=== PATIENT | male | born 1980 | race Caucasian/White ===

== ENCOUNTER 2020-04-18 19:24 | Observation (INO) ==
[2020-04-18] MEDS ORDERED: ONDANSETRON 4 MG/2 ML VIAL IV STA (19:50)
[2020-04-18] MEDS ORDERED: MORPHINE 4 MG/1 ML VIAL IV STA (19:50)
[2020-04-18 20:17] LABS: Basophils # 0.1 10*3/uL (0.0-0.2); Basophils % 0.5 % (0.0-0.8); Eosinophils # 0.1 10*3/uL (0.0-0.87); Eosinophils % 0.9 % (0.00-10.9); Hematocrit 45.2 VOL% (42.0-52.0); Hemoglobin 15.7 GM/DL (14.0-18.0); Immature Granulocytes % 0.3 %; Immature Granulocytes Absolute 0.05 #; Lymphocytes # 5.3 10*3/uL (1.4-4.0); Lymphocytes % 36.2 % (21.2-54.2); Mean Corpuscular HGB Conc 34.7 GM/DL (32-36); Mean Corpuscular Volume 83.4 FL (87-102); Mean Platelet Volume 8.8 FL (9.6-12.0); Monocytes % 6.4 % (1.7-12.7); Neutrophils % 55.7 % (38.7-73.9); Platelet Count 395 T/CUMM (130-400); Red Blood Count 5.42 MC/CUMM (3.8-5.5); Red Cell Distribution Width 12.1 % (9.3-17.3); White Blood Count 14.7 T/CUMM (4-12)
[2020-04-18 20:33] LABS: PT Patient Result 10.9 SECS (9.8-11.9)
[2020-04-18 20:57] LABS: Albumin 4.2 G/DL (3.4-5.0); Bilirubin,Total 0.6 MG/DL (0.2-1.0); Calcium 9.3 MG/DL (8.5-10.1); Osmolality,Calculated 272.8 MOS/KG (273-304); Total Protein 7.9 G/DL (6.4-8.3)
[2020-04-18] MEDS ORDERED: MORPHINE 4 MG/1 ML VIAL IV PRN (23:25)
[2020-04-18] MEDS ORDERED: ACETAMINOPHEN 325 MG TABLET PO PRN (23:25)
[2020-04-18] MEDS ORDERED: ONDANSETRON 4 MG/2 ML VIAL IV PRN (23:25)
[2020-04-18] MEDS ORDERED: DEXTROSE 50% 25 GM/50 ML VIAL IV PRN (23:25)
[2020-04-18] MEDS ORDERED: GLUCAGON 1 MG VIAL IM PRN (23:25)
[2020-04-18] MEDS ORDERED: ENOXAPARIN 40 MG/0.4 ML SYRINGE SUBCUT SCH (23:30)
[2020-04-18] MEDS ORDERED: KETOROLAC 30 MG/1 ML VIAL IV PRN (23:39)
[2020-04-19] MEDS ORDERED: NITROGLYCERIN 2% OINT 1 INCH/GM PACK TOP SCH
[2020-04-19 02:18] VITALS: BP 152/92
[2020-04-19] MEDS ORDERED: ASPIRIN EC 81 MG TABLET PO SCH (09:00)
[2020-04-19] MEDS ORDERED: ENALAPRIL 20 MG TABLET PO SCH (09:00)
[2020-04-19] MEDS ORDERED: PANTOPRAZOLE 40 MG TABLET PO SCH (09:00)
[2020-04-19] MEDS ORDERED: FLUoxetine 20 MG CAPSULE PO SCH (09:00)
[2020-04-19] MEDS ORDERED: ATORVASTATIN 40 MG TABLET PO SCH (09:00)
[2020-04-19] MEDS ORDERED: METOPROLOL SUCCINATE XL 25 MG TABLET PO SCH (09:00)
[2020-04-19] MEDS ORDERED: CLOPIDOGREL 75 MG TABLET PO SCH (09:00)
== END 2020-04-19 00:30 | disposition left against medical advice (07) ==
LOC: N.EDINP 19:24 → N.ED 19:24 → N.TELES 23:57
PROVIDERS: ADMIT Family Medicine; ATTEND Family Medicine

== ENCOUNTER 2020-08-15 06:50 | Observation (INO) ==
[2020-08-15] MEDS ORDERED: NITROGLYCERIN SL 0.4 MG TABLET SL PRN (09:39)
[2020-08-15] MEDS ORDERED: GLUCAGON 1 MG VIAL IM PRN (09:43)
[2020-08-15] MEDS ORDERED: ONDANSETRON 4 MG/2 ML VIAL IV PRN (09:43)
[2020-08-15] MEDS ORDERED: ACETAMINOPHEN 325 MG TABLET PO PRN (09:43)
[2020-08-15] MEDS ORDERED: DEXTROSE 50% 25 GM/50 ML VIAL IV PRN (09:43)
[2020-08-15 10:15] LABS: Calcium 8.6 MG/DL (8.5-10.1); Potassium 4.3 MMOL/L (3.5-5.1)
[2020-08-15 10:24] LABS: Risk Ratio 3.97; Thyroid Stimulating Hormone 1.12 uIU/ml (0.358-3.74); VLDL CHOLESTEROL 30.6 MG/DL
[2020-08-15] MEDS: PANTOPRAZOLE 40 MG TABLET PO SCH (11:16)
[2020-08-15] MEDS ORDERED: ACETAMINOPHEN 500 MG TABLET PO PRN (12:17)
[2020-08-15] MEDS: ASPIRIN EC 81 MG TABLET PO SCH (21:52)
[2020-08-16 05:58] LABS: Basophils # 0.1 10*3/uL (0.0-0.2); Basophils % 0.8 % (0.0-0.8); Eosinophils # 0.1 10*3/uL (0.0-0.87); Eosinophils % 1.3 % (0.00-10.9); Hematocrit 43.2 VOL% (42.0-52.0); Hemoglobin 15.1 GM/DL (14.0-18.0); Immature Granulocytes % 0.6 %; Immature Granulocytes Absolute 0.06 #; Lymphocytes # 3.9 10*3/uL (1.4-4.0); Lymphocytes % 37.4 % (21.2-54.2); Mean Platelet Volume 8.7 FL (9.6-12.0); Monocytes % 7.7 % (1.7-12.7); Neutrophils % 52.2 % (38.7-73.9); Platelet Count 316 T/CUMM (130-400); Red Blood Count 5.14 MC/CUMM (3.8-5.5); Red Cell Distribution Width 12.4 % (9.3-17.3); White Blood Count 10.4 T/CUMM (4-12)
[2020-08-16 06:11] LABS: Calcium 8.7 MG/DL (8.5-10.1); Osmolality,Calculated 274.8 MOS/KG (273-304); Potassium 4.3 MMOL/L (3.5-5.1)
[2020-08-16 08:23] VITALS: BP 125/64
[2020-08-16] MEDS: ASPIRIN EC 81 MG TABLET PO SCH (08:42)
[2020-08-16] MEDS: PANTOPRAZOLE 40 MG TABLET PO SCH (08:42)
[2020-08-16] MEDS ORDERED: METOPROLOL SUCCINATE XL 50 MG TABLET PO SCH (09:00)
[2020-08-16] MEDS ORDERED: CLOPIDOGREL 75 MG TABLET PO SCH (09:00)
[2020-08-16] MEDS ORDERED: FLUoxetine 20 MG CAPSULE PO SCH (09:00)
[2020-08-16] MEDS ORDERED: ENALAPRIL 10 MG TABLET PO SCH (09:00)
[2020-08-16] MEDS ORDERED: ATORVASTATIN 20 MG TABLET PO SCH (21:00)
== END 2020-08-16 11:37 | disposition home or self-care (01) ==
LOC: N.TELEN → SUATTDRO 08:37
PROVIDERS: ADMIT Internal Medicine; ATTEND Internal Medicine